=== PATIENT | female | born 1930 | race Caucasian/White ===

== ENCOUNTER 2016-12-01 18:07 | Inpatient (IN) | payer OTHER, MEDICARE ==
[~2016-12-01] VITALS: Ht 152.4 cm; Wt 72.6 kg
--- NOTE | 2016-12-01 18:42 | NUR ---
ADMISSION: The patient, BHUPENDRA ROMEO, 85 y/o, F admitted by CODY MELGAR MD, for pneumonia. Patient was given written information regarding hospital policies, unit procedures and contact persons. rn shift mgr nurse for this patient will be Fred. Patient room number is 126B.
[2016-12-01 20:00] VITALS: BP 137/72; PULSE 100; RESP 20; TEMP 97.2; O2SAT 95
--- NOTE | 2016-12-01 21:12 | NUR ---
PAGED: I PAGED DR. CAREN Donahue @ [phone] I SPOKE WITH ROBBY BALA FABIAN CALLED BACK @ 2109
[2016-12-01] MEDS ORDERED: INSULIN ASPART 100 UNITS/ML, 10 ML VIAL (NovoLOG) SUBCUT PRN (21:15)
[2016-12-01] MEDS ORDERED: ONDANSETRON HCL 4 MG/2 ML VIAL IVP PRN (21:15)
[2016-12-01] MEDS ORDERED: AZITHROMYCIN 500 MG in NS 250 ML IV ONE (21:15)
[2016-12-01] MEDS ORDERED: PHEDM120 PO (21:20)
[2016-12-01] MEDS ORDERED: INSU100V9 SUBCUT (21:20)
[2016-12-01] MEDS ORDERED: FOLI-43 PO (21:20)
[2016-12-01] MEDS ORDERED: SSNOVOLOG SUBCUT (21:20)
[2016-12-01] MEDS ORDERED: VITD2000 PO (21:20)
[2016-12-01] MEDS ORDERED: DILT180C69 PO (21:20)
[2016-12-01] MEDS ORDERED: FURO20TA4 PO (21:20)
[2016-12-01] MEDS ORDERED: SPIR50TA26 PO (21:20)
[2016-12-01] MEDS ORDERED: PANT20TA2 PO (21:20)
[2016-12-01] MEDS ORDERED: OXYB10TA4 PO (21:20)
--- NOTE | 2016-12-01 21:20 | NUR ---
DR. MELGAR. ORDERS FOR PATIENT BY DR. MELGAR.
[2016-12-01 21:25] VITALS: BP 137/72; PULSE 100; RESP 20; TEMP 97.2; O2SAT 95
--- NOTE | 2016-12-01 21:40 | NUR ---
NOTES HAS RFA 22G, IV SITE INTACT AND PATENT. SCD ON PATIENT ORDERED.
[2016-12-01] MEDS ORDERED: AZITHROMYCIN 500 MG/VIAL (ZITHROMAX) IV ONE (22:00)
[2016-12-01] MEDS ORDERED: cefTRIAXone 1 GM IVPB PREMIX 50 ML IV ONE (22:00)
[2016-12-01] MEDS: cefTRIAXone 1 GM in D5W 50 ML IV SCH (22:31)
--- NOTE | 2016-12-01 22:55 | NUR ---
BLOOD SUGAR 62 GAVE PATIENT JELLO AND APPLE JUICE.
--- NOTE | 2016-12-01 23:45 | NUR ---
BLOOD SUGAR 178 APPLE JUICE AND JELLO EFFECTIVE FOR BRINGING UP GLUCOSE LEVEL.
[2016-12-02 01:25] VITALS: BP 137/77; PULSE 108; RESP 14; TEMP 99.2; O2SAT 92
--- NOTE | 2016-12-02 02:20 | NUR ---
PATIENT RESTING: Patient resting quietly. No acute distress noted. Vital signs within normal range.
[2016-12-02] MEDS ORDERED: INSULIN ASPART 100 UNITS/ML, 10 ML VIAL (NovoLOG) SUBCUT PRN (02:45)
[2016-12-02 04:03] VITALS: BP 130/80; PULSE 101; RESP 16; TEMP 99.9; O2SAT 89
--- NOTE | 2016-12-02 04:15 | NUR ---
NOTES PATIENT DENIES SOB. NO RESPIRATORY INSUFFICIENCY NOTED @ THIS TIME. RESTING QUIETLY.
--- NOTE | 2016-12-02 06:30 | NUR ---
CLOSING NOTES PATIENT BLOOD SUGAR IS 154. NO COVERAGE GIVEN. PATIENT NPO FOR CHEST CT SCAN WITH IV CONTRAST. BED ALARM ON WITH SIDE RAILS UP X2. DAUGHTER @ BEDSIDE FILLED OUT CT SCAN QUESTIONS. CALL LIGHT WITHIN EASY ACCESS.
[2016-12-02 07:25] LABS: BASOPHILS % (AUTO) 0.5 % (0.0-2.0); EOSINOPHILS % (AUTO) 0.1 % (0.0-4.0); HEMATOCRIT 33.5 % (36-48); HEMOGLOBIN 11.5 g/dL (12.0-16.0); LYMPHOCYTES # (AUTO) 1.2 K/uL (1.0-5.5); MEAN CORPUSCULAR HEMOGLOBIN 33 pg (27-31); MEAN CORPUSCULAR HGB CONC 34 % (32-36); MEAN CORPUSCULAR VOLUME 95 fL (79.0-98.0); MONOCYTES # (AUTO) 0.7 K/uL (0.0-1.0); MONOCYTES % (AUTO) 11.6 % (1.7-9.3); NEUTROPHILS # (AUTO) 3.7 K/uL (1.8-7.7); NEUTROPHILS % (AUTO) 66.8 % (40.0-70.0); PLATELET COUNT (AUTO) 92 K/uL (130-430); RED BLOOD CELL COUNT(AUTO) 3.52 MIL/uL (4.2-6.2); RED CELL DISTRIBUTION WIDTH 14.7 % (9.0-15.0); WHITE BLOOD COUNT (AUTO) 5.6 K/uL (4.8-10.8)
[2016-12-02 07:39] LABS: ANION GAP 7 (5-15); CALCIUM 7.9 mg/dL (8.4-11.0); CHLORIDE 97 mmol/L (98-107); CREATININE 1.06 mg/dL (0.55-1.30); GLUCOSE 114 mg/dL (70-99); POTASSIUM 3.7 mmol/L (3.5-5.1); SODIUM SERUM 129 mmol/L (136-145); UREA NITROGEN, BLOOD 16 mg/dL (8-21)
[2016-12-02 08:00] VITALS: BP 126/76; PULSE 105; RESP 16; TEMP 99.1; O2SAT 98
[2016-12-02] MEDS ORDERED: IOHEXOL 100 ML IV ONE (08:28)
--- NOTE | 2016-12-02 08:55 | NUR ---
Nutrition Update Reymundo Scale 15 noted. Pt admitted for pneumonia. Diet: [facility] BMI: 25.6 kg/m2 RD to follow per nutrition care standards.
[2016-12-02] MEDS ORDERED: FUROSEMIDE 20 MG TABLET PO SCH (09:00)
[2016-12-02] MEDS ORDERED: DILTIAZEM HCL 180 MG CAP.SR.24H PO SCH (09:00)
[2016-12-02] MEDS: DILTIAZEM HCL 180 MG CAP.SR.24H PO SCH (09:20)
[2016-12-02] MEDS: ACETAMINOPHEN 500 MG TABLET PO PRN (09:20)
[2016-12-02] MEDS: OXYBUTYNIN CHLORIDE 5 MG TABLET PO SCH ×2 (09:21→21:57)
[2016-12-02] MEDS: FOLIC ACID 1 MG TABLET PO SCH ×3 (09:21→21:58)
[2016-12-02] MEDS: SPIRONOLACTONE 50 MG TABLET (ALDACTONE) PO SCH (09:21)
[2016-12-02] MEDS: CHOLECALCIFEROL (VITAMIN D3) 2,000 UNIT TABLET PO SCH (09:22)
--- NOTE | 2016-12-02 10:15 | NUR ---
Consult called: for Dr. Watson, regarding CHF, ordered by Godfrey Hicks, spoke with Gege.
--- NOTE | 2016-12-02 10:45 | NUR ---
Nephro Consult: for Dr. Schmid, regarding hyponatremia, ordered by Dr. Nash, spoke with Jeffery.
--- NOTE | 2016-12-02 10:45 | NUR ---
STARTED F/C 16FR ON PT. TOLERATED WELL; CLEAR YELLOW URINE. SPECIMEN SENT TO LAB. STRICT I&O PER DR. MELGAR.
--- NOTE | 2016-12-02 11:20 | NUR ---
Pulmo consult: for Dr. Zarco, regarding pneumonia, ordered by Godfrey Hicks, spoke with Aster.
[2016-12-02 11:45] VITALS: BP 126/76; PULSE 105
[2016-12-02 11:52] LABS: BILIRUBIN,URINE NEGATIVE (NEGATIVE); BLOOD, URINE NEGATIVE (NEGATIVE); CLARITY/URINE SL HAZY (CLEAR); COLOR,URINE YELLOW (YELLOW); GLUCOSE,URINE NEGATIVE (NEGATIVE); KETONES,URINE NEGATIVE (NEGATIVE); LEUKOCYTE ESTERASE ,URINE TRACE (NEGATIVE); NITRITE, URINE POSITIVE (NEGATIVE); PROTEIN URINE NEGATIVE (NEGATIVE)
--- NOTE | 2016-12-02 12:00 | NUR ---
[facility] of Care Received pt in bed, no s/s of distress or sob noted, pt has no c/o pain at this time, pt in stable condition. Pt alert and oriented 1, confused, daughter at bedside. IV catheter patent, no signs of infection or infiltration noted. Fall precautions in place. Bed at lowest position, call light within reach, will continue to monitor pt for any changes.
[2016-12-02 12:10] LABS: BACTERIA,URINE MODERATE /HPF (None Seen); RBC,URINE 0-3 /HPF (0-3)
[2016-12-02 12:48] VITALS: BP 117/61; PULSE 80; RESP 17; TEMP 98.4; O2SAT 94
--- NOTE | 2016-12-02 13:22 | NUR ---
Discharge Planning Patient's daughter, Ginger, would like patient to have home health care ordered upon discharge. [facility] requested the name of the agency used in the past from Dr Nash's office. Addendum: 12/02/16 at [address] Nash's office called. They use [facility] [phone]. Notified ALIS Cole.
--- NOTE | 2016-12-02 13:40 | NUR ---
MD ROUNDS Dr Schmid making rounds, aware of patients condition.
--- NOTE | 2016-12-02 14:20 | NUR ---
ROUNDS Pt in bed, no s/s of distress or sob noted, pt has no c/o pain at this time, pt in stable condition. Pt resting comfortably, will continue to monitor pt for any changes.
[2016-12-02] MEDS ORDERED: GLUCOSE 15 GM GEL (in 37.5 GM TUBE) PO PRN ×2 (14:45)
[2016-12-02] MEDS ORDERED: DEXTROSE 50%-WATER 50 ML DISP.SYRIN IVP PRN ×2 (14:45)
[2016-12-02] MEDS: IPRATROPIUM/ALBUTEROL SULFATE 3 ML AMPUL.NEB INH SCH ×3 (15:29→23:04)
[2016-12-02] MEDS ORDERED: PANTOPRAZOLE SODIUM 40 MG TAB PO ONE (15:45)
[2016-12-02 16:11] VITALS: BP 120/65; PULSE 84; RESP 18; TEMP 97.9; O2SAT 95
[2016-12-02] MEDS: INSULIN REGULAR, HUMAN 100 UNITS/ML, 10 ML VIAL (novoLIN R) SUBCUT PRN ×2 (16:59→22:30)
[2016-12-02] MEDS ORDERED: FUROSEMIDE 20 MG/2 ML VIAL IVP ONE (18:15)
--- NOTE | 2016-12-02 18:40 | NUR ---
Closing Note Pt in bed, no s/s of distress or sob noted, pt has no c/o pain at this time, pt in stable condition. Pt alert and oriented 2, confused, daughter at bedside. IV catheter patent, no signs of infection or infiltration noted. Fall precautions in place. Bed at lowest position, call light within reach, will endrose care of pt to incoming nurse.
--- NOTE | 2016-12-02 20:00 | NUR ---
Initial note Received lying in bed awake, alert & oriented x to name & place. Family at bedside. Denies pain or discomfort. Denies shortness of breath. Westfall catheter intact draining yellow urine. Instructed patient with family to remain in bed to prevent any fall or injury. Verbalized understanding. Instructed on use of call light & to notify staff if in need of assistance. Needs further instruction. Will continue to monitor.
--- NOTE | 2016-12-02 21:57 | NUR ---
Medications Due po medications given as ordered. tolerated well.
[2016-12-02] MEDS: guaiFENesin ER 600 MG TAB PO SCH (21:58)
[2016-12-02] MEDS: cefTRIAXone 1 GM in D5W 50 ML IV SCH (22:00)
--- NOTE | 2016-12-02 22:30 | NUR ---
Blood sugar Fingerstick checked = 249 mg/dL. No s/s of hypo/hyperglycemia. 4 unites regular insurin for coverage and schedule Levemir 20 units scheduled dose given as ordered.
[2016-12-02] MEDS: AZITHROMYCIN 250 MG in NS 250 ML IV SCH (22:48)
[2016-12-03 00:07] VITALS: BP 121/59; PULSE 108; RESP 20; TEMP 98.4; O2SAT 98
[2016-12-03] MEDS: IPRATROPIUM/ALBUTEROL SULFATE 3 ML AMPUL.NEB INH SCH ×5 (03:59→22:20)
[2016-12-03 04:06] VITALS: BP 120/54; PULSE 98; RESP 18; TEMP 98.2; O2SAT 96
[2016-12-03 06:54] LABS: BASOPHILS % (AUTO) 0.3 % (0.0-2.0); EOSINOPHILS % (AUTO) 0.1 % (0.0-4.0); HEMATOCRIT 34.4 % (36-48); HEMOGLOBIN 11.8 g/dL (12.0-16.0); LYMPHOCYTES # (AUTO) 0.7 K/uL (1.0-5.5); LYMPHOCYTES % (AUTO) 15.5 % (20.5-51.5); MEAN CORPUSCULAR HEMOGLOBIN 32 pg (27-31); MEAN CORPUSCULAR HGB CONC 34 % (32-36); MEAN CORPUSCULAR VOLUME 95 fL (79.0-98.0); MONOCYTES # (AUTO) 0.4 K/uL (0.0-1.0); MONOCYTES % (AUTO) 8.8 % (1.7-9.3); NEUTROPHILS # (AUTO) 3.3 K/uL (1.8-7.7); NEUTROPHILS % (AUTO) 75.3 % (40.0-70.0); PLATELET COUNT (AUTO) 86 K/uL (130-430); RED BLOOD CELL COUNT(AUTO) 3.64 MIL/uL (4.2-6.2); RED CELL DISTRIBUTION WIDTH 14.3 % (9.0-15.0); WHITE BLOOD COUNT (AUTO) 4.4 K/uL (4.8-10.8)
--- NOTE | 2016-12-03 07:00 | NUR ---
Closing note Resting quietly, alert & oriented to name, daughter at bedside. No c/o pain or discomfort. Reoriented to place & time. Repositioned frequently with pillow support. All needs attended to. Will give report to oncoming shift RN.
[2016-12-03 07:41] LABS: ANION GAP 6 (5-15); CALCIUM 7.9 mg/dL (8.4-11.0); CHLORIDE 98 mmol/L (98-107); CREATININE 0.95 mg/dL (0.55-1.30); GLUCOSE 128 mg/dL (70-99); POTASSIUM 3.4 mmol/L (3.5-5.1); SODIUM SERUM 131 mmol/L (136-145); UREA NITROGEN, BLOOD 16 mg/dL (8-21)
--- NOTE | 2016-12-03 07:55 | NUR ---
INITIAL NOTES RECEIVED PATIENT ON BED AWAKE WITH DAUGHTER AT BEDSIDE.BREATHING EVEN AND UNLABORED.NO ACUTE DISTRESS.IVF INFUSING WELL;NO SIGNS AND SYMPTOMS OF INFILTRATION.SAFETY AND FALL PRECAUTIONS IN PLACE.CALL LIGHT WITHIN REACH
[2016-12-03 08:00] VITALS: BP 119/65; PULSE 117; RESP 22; TEMP 98.8; O2SAT 97
--- NOTE | 2016-12-03 08:30 | NUR ---
NOTES DR. MELGAR CAME AND EXAMINED THE PATIENT;WITH ORDERS MADE AND CARRIED OUT
[2016-12-03] MEDS ORDERED: POTASSIUM CHLORIDE 20 MEQ/PKT PACKET PO ONE (09:45)
[2016-12-03] MEDS: OXYBUTYNIN CHLORIDE 5 MG TABLET PO SCH ×2 (09:50→21:13)
[2016-12-03] MEDS: guaiFENesin ER 600 MG TAB PO SCH ×2 (09:50→21:13)
[2016-12-03] MEDS: CHOLECALCIFEROL (VITAMIN D3) 2,000 UNIT TABLET PO SCH (09:50)
[2016-12-03] MEDS: FOLIC ACID 1 MG TABLET PO SCH ×3 (09:50→21:13)
[2016-12-03] MEDS: PANTOPRAZOLE SODIUM 40 MG TAB PO SCH (09:50)
[2016-12-03] MEDS: FUROSEMIDE 40 MG/4 ML VIAL IVP SCH (09:50)
[2016-12-03] MEDS: DILTIAZEM HCL 180 MG CAP.SR.24H PO SCH (09:51)
[2016-12-03] MEDS: LISINOPRIL 5 MG TABLET PO SCH (09:52)
[2016-12-03] MEDS: SPIRONOLACTONE 50 MG TABLET (ALDACTONE) PO SCH (09:52)
[2016-12-03] MEDS ORDERED: POTASSIUM CHLORIDE 20 MEQ TAB.PRT.SR PO ONE (10:45)
--- NOTE | 2016-12-03 10:45 | NUR ---
NOTES CHECKED PATIENT;NEEDS ATTENDED TO
[2016-12-03] MEDS ORDERED: METOPROLOL TARTRATE 25 MG TABLET PO ONE (11:45)
[2016-12-03 12:00] VITALS: BP 117/54; PULSE 108; RESP 18; TEMP 97.1; O2SAT 95
[2016-12-03] MEDS: INSULIN REGULAR, HUMAN 100 UNITS/ML, 10 ML VIAL (novoLIN R) SUBCUT PRN ×3 (12:02→21:31)
--- NOTE | 2016-12-03 12:30 | NUR ---
NOTES PATIENT FED BY DAUGHTER;TOLERATED FOOD WELL
--- NOTE | 2016-12-03 15:00 | NUR ---
NOTES ASSISTED PATIENT WITH THE PT FROM THE RESTROOM TO THE BED;WITH UNSTEADY GAIT.INSTRUCTED FAMILY NOT TO TRY TO ASSIST THE PATIENT WITHOUT CALLING THE NURSE DUE TO RISK OF FALLING;AGREED AND VERBALIZED UNDERSTANDING
--- NOTE | 2016-12-03 15:03 | NUR ---
PHYSICAL THERAPY CO-SIGN The Physical Therapy Progress Notes documented by Gear Roller have been reviewed. Pt IS SHOWING PROGRESS W/POC, CONT PER TX PLAN Reviewed/Co-Signed by: Julia Goel PT Documentation Done by: MARTHA SHANKAR WELDING SETTER Addendum: 12/03/16 at 1504 by Julia Goel PT Amended: Links added.
[2016-12-03 18:01] VITALS: BP 115/57; PULSE 105; RESP 18; TEMP 97; O2SAT 95
--- NOTE | 2016-12-03 18:15 | NUR ---
CLOSING NOTES PATIENT ON BED AWAKE WITH DAUGHTER AT BEDSIDE.BREATHING EVEN AND UNLABORED WITH O2 AT 2L/M VIA NASAL CANNULA.NO ACUTE DISTRESS.IV SALINE LOCK INTACT AND PATENT.SAFETY AND FALL PRECAUTIONS IN PLACE.CALL LIGHT WITHIN REACH.WILL ENDORSE TO NEXT SHIFT ACCORDINGLY
[2016-12-03 19:45] VITALS: BP 107/52; PULSE 95; RESP 17; TEMP 97.9; O2SAT 90
--- NOTE | 2016-12-03 19:45 | NUR ---
INITIAL NOTES RECEIVED PATIENT ON BED AWAKE WITH DAUGHTER AT BEDSIDE.BREATHING EVEN AND UNLABORED.NO ACUTE DISTRESS. DENIES PAIN AT THIS TIME. IV ACCESS NOTED TO RFA, NO SIGNS AND SYMPTOMS OF INFILTRATION NOTED.SAFETY AND FALL PRECAUTIONS IN PLACE.CALL LIGHT WITHIN REACH.
[2016-12-03] MEDS: METOPROLOL TARTRATE 25 MG TABLET PO SCH (21:16)
[2016-12-03] MEDS: AZITHROMYCIN 250 MG in NS 250 ML IV SCH (21:17)
--- NOTE | 2016-12-03 22:03 | NUR ---
ROUNDS PT. RESTING IN BED WITH EYES CLOSED. CHEST RISE AND FALL NOTED. DAUGHTER AT BEDSIDE. IV ANTIBIOTIC INFUSING WELL ORDERED. NO ADVERSE REACTIONS NOTED. NO FACIAL GRIMACING FOR PAIN. WILL CONTINUE TO MONITOR FOR CHANGES. SAFETY AND FALL PRECAUTIONS IN PLACE, CALL LIGHT IN REACH.
[2016-12-03] MEDS: cefTRIAXone 1 GM in D5W 50 ML IV SCH (23:26)
[2016-12-03] MEDS: LACTULOSE 20 GM/30 ML UDC PO SCH (23:28)
--- NOTE | 2016-12-04 00:02 | NUR ---
ROUNDS PT. RESTING IN BED WITH EYES CLOSED. CHEST RISE AND FALL NOTED. NO S/S OF SOB OR DISTRESS. NO FACIAL GRIMACING FOR PAIN. DAUGHTER AT BEDSIDE. WILL CONTINUE TO MONITOR FOR CHANGES. SAFETY AND FALL PRECAUTIONS IN PLACE, CALL LIGHT IN REACH.
[2016-12-04 01:17] VITALS: BP 101/65; PULSE 70; RESP 16; TEMP 97.1; O2SAT 100
[2016-12-04] MEDS: IPRATROPIUM/ALBUTEROL SULFATE 3 ML AMPUL.NEB INH SCH ×6 (03:05→20:14)
[2016-12-04 04:12] VITALS: BP 120/70; PULSE 95; RESP 18; TEMP 97.9; O2SAT 93
--- NOTE | 2016-12-04 07:00 | NUR ---
closing note pt. resting in bed at this time. alert, with daughter at the bedside. hypoglycemic protocol was initiated this morning for accu check of 31 at 0628, glucose gel given, along with oj. rechecked at 0643, glucose level was 32, gave d 50%, rechecked at 0658, glucose went up to 200. pt. in stable condition at this time with no s/s of hypoglycemia present. day nurse Treva and Myron made aware, state they will inform MD. all necessary needs met, safety and fall precautions maintained. call light in reach.
[2016-12-04 07:26] LABS: ANION GAP 5 (5-15); CALCIUM 8.4 mg/dL (8.4-11.0); CHLORIDE 97 mmol/L (98-107); CREATININE 1.06 mg/dL (0.55-1.30); POTASSIUM 3.9 mmol/L (3.5-5.1); SODIUM SERUM 130 mmol/L (136-145); UREA NITROGEN, BLOOD 17 mg/dL (8-21)
[2016-12-04 07:53] LABS: GLUCOSE 32 mg/dL (70-99)
[2016-12-04 08:00] VITALS: BP 116/70; PULSE 102; RESP 18; TEMP 97.2; O2SAT 97
[2016-12-04] MEDS: LISINOPRIL 5 MG TABLET PO SCH (09:32)
[2016-12-04] MEDS: guaiFENesin ER 600 MG TAB PO SCH ×2 (09:33→21:44)
[2016-12-04] MEDS: PANTOPRAZOLE SODIUM 40 MG TAB PO SCH (09:33)
[2016-12-04] MEDS: SPIRONOLACTONE 50 MG TABLET (ALDACTONE) PO SCH (09:34)
[2016-12-04] MEDS: DILTIAZEM HCL 180 MG CAP.SR.24H PO SCH (09:35)
[2016-12-04] MEDS: METOPROLOL TARTRATE 25 MG TABLET PO SCH ×2 (09:35→21:45)
[2016-12-04] MEDS: OXYBUTYNIN CHLORIDE 5 MG TABLET PO SCH ×2 (09:37→21:45)
[2016-12-04] MEDS: FOLIC ACID 1 MG TABLET PO SCH ×3 (09:37→21:45)
[2016-12-04] MEDS: FUROSEMIDE 40 MG/4 ML VIAL IVP SCH (09:39)
[2016-12-04] MEDS: CHOLECALCIFEROL (VITAMIN D3) 2,000 UNIT TABLET PO SCH (09:40)
[2016-12-04] MEDS: LACTULOSE 20 GM/30 ML UDC PO SCH ×2 (09:47→21:00)
--- NOTE | 2016-12-04 10:00 | NUR ---
Rounds patient is sitting at the bed side. family members by the bed site. patient is talking and denies pain or discomfort. education for the family members about the plan of care was done, family verbalized understanding
--- NOTE | 2016-12-04 11:30 | NUR ---
RN Rounds patient lying on bed alter oriented denies pain and discomfort. patient blood sugar was measured< patient was covered for her blood sugar level. family members by bed side.
[2016-12-04 12:00] VITALS: BP 116/62; PULSE 86; RESP 18; TEMP 97.8; O2SAT 98
[2016-12-04] MEDS: INSULIN REGULAR, HUMAN 100 UNITS/ML, 10 ML VIAL (novoLIN R) SUBCUT PRN (12:27)
--- NOTE | 2016-12-04 13:53 | NUR ---
PHYSICAL THERAPY CO-SIGN The Physical Therapy Progress Notes documented by Microbiology Laboratory Manager have been reviewed. Reviewed/Co-Signed by: Kavya Rey Documentation Done by:MARTHA SHANKAR CURING MACHINE OPERATOR POC REVIEWED W/ CURING MACHINE OPERATOR; PROGRESS RADHA; EMPHASIZE ON ENERGY CONS TECH; 12/03/16 XR CHEST:PERSISTENT DIFFUSE MULTIFOCAL INFILTRATES, SMALL (L)EFFUSION, ASVC, CARDIOMEGALY PER CHART. Addendum: 12/04/16 at 1354 by Kavya Rey PT Amended: Links added.
--- NOTE | 2016-12-04 14:00 | NUR ---
RN Rounds patient needed to have a bowel movement, BSC was brought into the room in anticipation. patient was cleaned up and bed linens were changed
[2016-12-04] MEDS: VANCOMYCIN HCL 600 MG in NS 250 ML IV SCH (14:55)
[2016-12-04] MEDS: ACETYLCYSTEINE 20% 4 ML VIAL (RT) INH SCH ×2 (15:09→20:14)
--- NOTE | 2016-12-04 17:00 | NUR ---
RN Rounds patient lying in bed family members by bed side, patient's blood sugar was measured . patient was not covered with insulin since her level was 114 . patient is breathing at ease> no coughing or shortness of breath. will follow up
[2016-12-04 17:34] VITALS: BP 114/66; PULSE 83; RESP 18; TEMP 97.5; O2SAT 98
--- NOTE | 2016-12-04 19:06 | NUR ---
CLOSING NOTE Pt assisted to bedside commode by exhibits manager and had a moderate sized BM. Pt cleaned up and assisted back into bed. Pt with no s/s resp distress, no c/o pain or discomfort. Side rails up x3, room across from nursing station and bed alarm on for safety. Call light within reach.
--- NOTE | 2016-12-04 19:37 | NUR ---
RN ROUNDS Patient in bed at this time resting, respirations even and unlabored. Family at the bedside. Patient denies any pain or discomfort at this time. IV site patent with no signs or symptoms of infiltration noted at this time. Call light in hand, Fall and safety precautions in place. Will continue to monitor.
--- NOTE | 2016-12-04 19:46 | NUR ---
Rounds patient was assessed alert oriented x4. denies pain and discomfort. patient vital were measured. patient medication will be passed on at 900 am will follow up Addendum: 12/04/16 at 1958 by Ayanna Danielle RN this was the opening note at 800
[2016-12-04 20:00] VITALS: BP 121/74; PULSE 61; RESP 20; TEMP 97.8; O2SAT 96
--- NOTE | 2016-12-04 20:15 | NUR ---
Skin Tear Noticed skin tear 2cmx0.5cm on left elbow when assisting patient back to bed from bedside commode. Patient denies any pain or discomfort to site. Family at bedside and states that her skin is very fragile, and tears easily. Cleansed with NS, pat dry. Applied hydrogel, and per daughters request, applied gauzed and paper tape. Patient tolerated well.
[2016-12-04] MEDS: AZITHROMYCIN 250 MG in NS 250 ML IV SCH (21:44)
[2016-12-04] MEDS: cefTRIAXone 1 GM in D5W 50 ML IV SCH (21:46)
--- NOTE | 2016-12-04 22:03 | NUR ---
RN ROUNDS Patient in bed at this time resting, respirations even and unlabored. No acute distress noted at this time. Family at bedside. Call light in hand. Fall and safety precautions in place. Will continue to monitor.
[2016-12-05] VITALS (7 sets, daily range): BP systolic 98–132; BP diastolic 48–68; PULSE 76–93; RESP 18; TEMP 96.5–98; O2SAT 96–99
[2016-12-05] MEDS: IPRATROPIUM/ALBUTEROL SULFATE 3 ML AMPUL.NEB INH SCH ×7 (00:18→23:00)
[2016-12-05] MEDS: ACETYLCYSTEINE 20% 4 ML VIAL (RT) INH SCH ×6 (00:18→23:00)
--- NOTE | 2016-12-05 00:24 | NUR ---
RN ROUNDS Patient in bed at this time resting, respirations even and unlabored. No acute distress noted at this time. Call light in hand. Fall and safety precautions in place. Vital signs stable. Will continue to monitor.
--- NOTE | 2016-12-05 02:10 | NUR ---
RN ROUNDS Patient in bed at this time resting, respirations even and unlabored. No acute distress noted at this time. Daughter Yissel at bedside. Call light in hand. Fall and safety precautions in place. Will continue to monitor.
--- NOTE | 2016-12-05 04:48 | NUR ---
RN ROUNDS Patient in bed at this time resting, respirations even and unlabored. No acute distress noted at this time. Vital signs stable. Call light in hand. Fall and safety precautions in place. Will continue to monitor.
[2016-12-05] MEDS: INSULIN REGULAR, HUMAN 100 UNITS/ML, 10 ML VIAL (novoLIN R) SUBCUT PRN ×3 (06:18→21:37)
[2016-12-05 06:24] LABS: BASOPHILS % (AUTO) 0.5 % (0.0-2.0); EOSINOPHILS # (AUTO) 0.1 K/uL (0.0-0.4); EOSINOPHILS % (AUTO) 0.8 % (0.0-4.0); HEMATOCRIT 36.4 % (36-48); HEMOGLOBIN 12.1 g/dL (12.0-16.0); LYMPHOCYTES # (AUTO) 1.7 K/uL (1.0-5.5); LYMPHOCYTES % (AUTO) 25.9 % (20.5-51.5); MEAN CORPUSCULAR HEMOGLOBIN 32 pg (27-31); MEAN CORPUSCULAR HGB CONC 33 % (32-36); MEAN CORPUSCULAR VOLUME 96 fL (79.0-98.0); MONOCYTES # (AUTO) 0.6 K/uL (0.0-1.0); MONOCYTES % (AUTO) 9.5 % (1.7-9.3); NEUTROPHILS # (AUTO) 4.1 K/uL (1.8-7.7); NEUTROPHILS % (AUTO) 63.3 % (40.0-70.0); PLATELET COUNT (AUTO) 111 K/uL (130-430); RED CELL DISTRIBUTION WIDTH 14.4 % (9.0-15.0); WHITE BLOOD COUNT (AUTO) 6.5 K/uL (4.8-10.8)
[2016-12-05 06:40] LABS: ANION GAP 9 (5-15); CALCIUM 8.6 mg/dL (8.4-11.0); CHLORIDE 98 mmol/L (98-107); GLUCOSE 207 mg/dL (70-99); SODIUM SERUM 133 mmol/L (136-145); UREA NITROGEN, BLOOD 17 mg/dL (8-21)
--- NOTE | 2016-12-05 06:41 | NUR ---
CLOSING NOTE Patient in bed at this time resting, with daughter at the bedside. Respirations even and unlabored. No acute distress noted at this time. Patient in no apparent pain or discomfort at this time, no facial grimacing noted. All due meds given, all needs met. Call light in hand. Fall and safety precautions in place. Will endorse to day shift nurse.
--- NOTE | 2016-12-05 08:00 | NUR ---
Initial Notes Patient A/O x 3. Respirations even and unlabored. Denies difficulty breathing. IV access patent. Fall and safety precautions in place. Bed in lowest and locked position.
[2016-12-05] MEDS: LACTULOSE 20 GM/30 ML UDC PO SCH ×2 (09:00→21:16)
[2016-12-05] MEDS ORDERED: TOBRAMYCIN SULFATE OP SCH (09:00)
[2016-12-05] MEDS: guaiFENesin ER 600 MG TAB PO SCH ×2 (09:58→21:19)
[2016-12-05] MEDS: FOLIC ACID 1 MG TABLET PO SCH ×3 (09:58→21:18)
[2016-12-05] MEDS: PANTOPRAZOLE SODIUM 40 MG TAB PO SCH (09:59)
[2016-12-05] MEDS: CHOLECALCIFEROL (VITAMIN D3) 2,000 UNIT TABLET PO SCH (09:59)
[2016-12-05] MEDS: METOPROLOL TARTRATE 25 MG TABLET PO SCH ×2 (10:00→21:18)
[2016-12-05] MEDS: LISINOPRIL 5 MG TABLET PO SCH (10:00)
[2016-12-05] MEDS: SPIRONOLACTONE 50 MG TABLET (ALDACTONE) PO SCH (10:01)
[2016-12-05] MEDS: DILTIAZEM HCL 180 MG CAP.SR.24H PO SCH (10:01)
[2016-12-05] MEDS: TOBRAMYCIN SULFATE 0.3% EYE DROPS 5 ML OP SCH ×4 (10:02→21:19)
[2016-12-05] MEDS: OXYBUTYNIN CHLORIDE 5 MG TABLET PO SCH ×2 (10:03→21:38)
--- NOTE | 2016-12-05 11:17 | NUR ---
Notes Patient sitting upright in chair. Ambulated earlier with physical therapy. No acute distress noted.
[2016-12-05] MEDS: VANCOMYCIN HCL 600 MG in NS 250 ML IV SCH (13:08)
--- NOTE | 2016-12-05 13:56 | NUR ---
PHYSICAL THERAPY CO-SIGN The Physical Therapy Progress Notes documented by Top Closer have been reviewed. Reviewed/Co-Signed by: Ramandeep Miguel, PT Documentation Done by: Rafa Schuster PTA I concur with the documentation of this EDGING MACHINE OPERATOR. Plan: continue PT as per plan of care. Addendum: 12/05/16 at 1357 by Ramandeep Miguel PT Amended: Links added.
--- NOTE | 2016-12-05 18:50 | NUR ---
Closing Note Patient needs met throughout shift. Remained free of respiratory distress throughout shift. Able to ambulate with assistance. Family at bedside throughout day. Will continue to monitor until patient care is endorsed to oncoming shift nurse.
--- NOTE | 2016-12-05 20:36 | NUR ---
Patient awake alert assist out of bed to BSC , family at the bedside fall measures implemented , back to bed comfort measures helpful , call given to patient / .
[2016-12-05] MEDS: AZITHROMYCIN 250 MG in NS 250 ML IV SCH (21:17)
[2016-12-05] MEDS: cefTRIAXone 1 GM in D5W 50 ML IV SCH (21:20)
--- NOTE | 2016-12-05 23:15 | NUR ---
Reposition and Turning off loading with pillows comfort measures implemented activity tolerated / .
--- NOTE | 2016-12-06 00:15 | NUR ---
Patient awake assist out of bed to BSC , family member at the bedside fall measures implemented .
[2016-12-06 00:41] VITALS: BP 104/58; PULSE 86; RESP 17; TEMP 97.2; O2SAT 96
--- NOTE | 2016-12-06 02:25 | NUR ---
ZITHROMAX 250 MG IVP administer as ordered no allergic reaction skin dry warm no complaints made .
[2016-12-06] MEDS: IPRATROPIUM/ALBUTEROL SULFATE 3 ML AMPUL.NEB INH SCH ×6 (03:53→23:06)
[2016-12-06] MEDS: ACETYLCYSTEINE 20% 4 ML VIAL (RT) INH SCH ×6 (03:54→23:06)
[2016-12-06 04:30] VITALS: BP 114/58; PULSE 88; RESP 18; TEMP 97; O2SAT 98
--- NOTE | 2016-12-06 05:49 | NUR ---
Rocephin 1 GM ivpb administer as ordered no allergic reaction , patient awake on and off / .
--- NOTE | 2016-12-06 05:50 | NUR ---
Hourly Rounding family at the bedside , call cook with patient bed to low position .
[2016-12-06] MEDS: INSULIN REGULAR, HUMAN 100 UNITS/ML, 10 ML VIAL (novoLIN R) SUBCUT PRN ×4 (06:37→20:50)
--- NOTE | 2016-12-06 08:00 | NUR ---
OPENING NOTE PT SITTING UP IN BED, TALKING WITH FAMILY (JOE) WHO IS AT BEDSIDE. PT IS STABLE, A&O X 4, AND IS NOT CURRENTLY IN PAIN. LUNG SOUNDS ARE SLIGHTLY DIMINISHED IN LOWER LOBES, CRACKLES PRESENT. IV FLUSHES, DRESSING INTACT.
[2016-12-06 08:31] VITALS: BP 111/62; PULSE 93; RESP 17; TEMP 97.2; O2SAT 98
[2016-12-06] MEDS: LACTULOSE 20 GM/30 ML UDC PO SCH ×2 (08:34→20:36)
[2016-12-06] MEDS: FUROSEMIDE 40 MG/4 ML VIAL IVP SCH (08:35)
[2016-12-06] MEDS: CHOLECALCIFEROL (VITAMIN D3) 2,000 UNIT TABLET PO SCH (08:35)
[2016-12-06] MEDS: PANTOPRAZOLE SODIUM 40 MG TAB PO SCH (08:36)
[2016-12-06] MEDS: DILTIAZEM HCL 180 MG CAP.SR.24H PO SCH (08:37)
[2016-12-06] MEDS: FOLIC ACID 1 MG TABLET PO SCH ×3 (08:37→20:37)
[2016-12-06] MEDS: LISINOPRIL 5 MG TABLET PO SCH (08:37)
[2016-12-06] MEDS: SPIRONOLACTONE 50 MG TABLET (ALDACTONE) PO SCH (08:38)
[2016-12-06] MEDS: guaiFENesin ER 600 MG TAB PO SCH ×2 (08:38→20:37)
[2016-12-06] MEDS: METOPROLOL TARTRATE 25 MG TABLET PO SCH ×2 (08:39→20:37)
[2016-12-06] MEDS: TOBRAMYCIN SULFATE 0.3% EYE DROPS 5 ML OP SCH ×4 (08:40→20:36)
[2016-12-06] MEDS: OXYBUTYNIN CHLORIDE 5 MG TABLET PO SCH ×2 (08:42→20:37)
--- NOTE | 2016-12-06 10:00 | NUR ---
ROUNDS PT FAMILY MEMBER STEPPED AWAY BUT SAID SHE WILL RETURN SHORTLY. PT RESTING IN BED AND APPEARS COMFORTABLE. BED IN LOWEST POSITION AND CALL LIGHT WITHIN REACH
--- NOTE | 2016-12-06 11:45 | NUR ---
RT at bedside to assist patient back to bed. Pt request to sit up a while longer. Pt in recliner with family at bedside. Addendum: 12/06/16 at 1146 by Yaneli Martinez RN PT - Physical therapy
[2016-12-06 12:00] VITALS: BP 104/53; PULSE 87; RESP 18; TEMP 96.7; O2SAT 99
--- NOTE | 2016-12-06 12:00 | NUR ---
ROUNDS PT SITTING UP IN A CHAIR, TALKING WITH HER FAMILY MEMBERS WHO ARE AT BEDSIDE
[2016-12-06] MEDS: VANCOMYCIN HCL 600 MG in NS 250 ML IV SCH (13:24)
--- NOTE | 2016-12-06 14:00 | NUR ---
rounds pt sitting up in a chair, talking with her family
[2016-12-06 15:38] VITALS: Ht 152.4 cm; Wt 72.6 kg
--- NOTE | 2016-12-06 16:00 | NUR ---
ROUNDS PT IS STILL SITTING UP IN A LOUNGE CHAIR, FAMILY PRESENT AT BEDSIDE.
[2016-12-06 16:12] VITALS: BP 119/64; PULSE 73; RESP 18; TEMP 97.3; O2SAT 98
--- NOTE | 2016-12-06 18:00 | NUR ---
ROUNDS PT IS BACK IN BED. POSITIONED FOR COMFORT AND SET BED IN LOWEST POSITION. CALL LIGHT WITHIN REACH
--- NOTE | 2016-12-06 18:00 | NUR ---
Dr Carolee shah
--- NOTE | 2016-12-06 18:29 | NUR ---
Dr Darnell manpower development specialist rounds
[2016-12-06 19:00] LABS: ANION GAP 8 (5-15); CALCIUM 9.2 mg/dL (8.4-11.0); CHLORIDE 96 mmol/L (98-107); CREATININE 1.24 mg/dL (0.55-1.30); GLUCOSE 224 mg/dL (70-99); POTASSIUM 4.7 mmol/L (3.5-5.1); SODIUM SERUM 129 mmol/L (136-145); UREA NITROGEN, BLOOD 17 mg/dL (8-21)
--- NOTE | 2016-12-06 19:00 | NUR ---
CLOSING NOTE PT IN BED, FAMILY STILL AT BEDSIDE. VS STABLE AND PT STATED SHE IS COMFORTABLE. REPORT ENDORSED AT BEDSIDE
[2016-12-06 19:30] VITALS: BP 128/69; PULSE 80; RESP 18; TEMP 97; O2SAT 100
--- NOTE | 2016-12-06 19:30 | NUR ---
Initial Notes Pt is A/Ox2, with some confusion noted. Family is at bedside. Plan of care discussed with family and pt, all verbalized understanding. VSS. IV intact, saline lock. Pt is on room air with O2 saturation at 100%. Pt noted to wear diapers that were brought from home. Family educated regarding risks from skin breakdown while wearing diaper. Pt noted to have some redness to ofe area and buttocks, Z guard applied to reddened areas. Pt is sitting on recliner. No acute distress or sob noted. Safety precautions in place. Patient and family educated regarding call light, and correct back demonstration noted. All needs met at this time. Call light in reach. Will continue to monitor.
[2016-12-06] MEDS: cefTRIAXone 1 GM in D5W 50 ML IV SCH (20:27)
[2016-12-06] MEDS: AZITHROMYCIN 250 MG in NS 250 ML IV SCH (21:11)
[2016-12-06] MEDS: PROMETHAZINE-DM 6.25 MG-15 MG/5 ML UDC PO PRN (21:14)
--- NOTE | 2016-12-06 22:26 | NUR ---
Rounds Pt is resting comfortably in bed at this time with no acute distress or sob noted. Family remains with pt at bedside. Pt re positioned with pillows for comfort. All needs met at this time. Call light within reach. Will continue to monitor.
--- NOTE | 2016-12-06 23:09 | NUR ---
Rounds Assisted pt out of bed to use bedside commode safely. Pt's diaper from home changed per familys request. Assisted pt back into bed safely. All needs met at this time. Call light in reach. Will continue to monitor.
[2016-12-07 00:49] VITALS: BP 112/60; PULSE 72; RESP 18; TEMP 96.8; O2SAT 99
[2016-12-07] MEDS: PROMETHAZINE-DM 6.25 MG-15 MG/5 ML UDC PO PRN (03:04)
--- NOTE | 2016-12-07 03:07 | NUR ---
Cough Medicine Pt c/o cough. Pt medicated with cough medicine as ordered. All needs met at this time. Call light in reach. Will continue to monitor.
[2016-12-07] MEDS: IPRATROPIUM/ALBUTEROL SULFATE 3 ML AMPUL.NEB INH SCH ×5 (03:41→22:53)
[2016-12-07] MEDS: ACETYLCYSTEINE 20% 4 ML VIAL (RT) INH SCH ×4 (03:41→22:53)
[2016-12-07 04:40] VITALS: BP 106/57; PULSE 77; RESP 18; TEMP 97.2; O2SAT 94
[2016-12-07] MEDS: INSULIN REGULAR, HUMAN 100 UNITS/ML, 10 ML VIAL (novoLIN R) SUBCUT PRN ×4 (06:23→21:33)
--- NOTE | 2016-12-07 06:33 | NUR ---
Closing Notes Pt had large brown stool on BSC. Pt given bed bath and new gown and linen. Pt re positioned in bed for comfort. All needs met throughout shift. VSS. IV intact. All needs met throughout shift. Will endorse care to AM nurse.
[2016-12-07 07:38] VITALS: BP 124/72; PULSE 81; RESP 17; TEMP 97.4; O2SAT 99
--- NOTE | 2016-12-07 07:44 | NUR ---
OPENING NOTE PT SITTING UP IN BED, FAMILY (NATALIE, HER DAUGHTER) AT BEDSIDE. IV WAS CONNECTED BUT NOT RUNNING, BUT IV FLUSHES AND I ESTABLISHED NS AT 5 A TKO. LUNGS ARE CLEAR IN ALL LOBES, NO CRACKLES PRESENT. VS STABLE AND PT IS NOT IN PAIN
--- NOTE | 2016-12-07 08:00 | NUR ---
SKIN EDUCATED FAMILY ON WHY WE DON'T USE DIAPERS AT THIS FACILITY, BUT FAMILY WELL PATIENT INSISTED SHE CONTINUE TO WEAR THEM. FAMILY BRINGS IN THEIR OWN DEPENDS
[2016-12-07] MEDS: LACTULOSE 20 GM/30 ML UDC PO SCH (09:00)
--- NOTE | 2016-12-07 09:06 | NUR ---
HOLDING LACTULOSE PT HAS HAD 4 EPISODES OF DIARRHEA SINCE 0700, SO I AM HOLDING THE 0900 LACTULOSE.
[2016-12-07] MEDS: TOBRAMYCIN SULFATE 0.3% EYE DROPS 5 ML OP SCH ×4 (09:32→21:23)
[2016-12-07] MEDS: PANTOPRAZOLE SODIUM 40 MG TAB PO SCH (09:33)
[2016-12-07] MEDS: CHOLECALCIFEROL (VITAMIN D3) 2,000 UNIT TABLET PO SCH (09:33)
[2016-12-07] MEDS: FUROSEMIDE 40 MG/4 ML VIAL IVP SCH (09:33)
[2016-12-07] MEDS: LISINOPRIL 5 MG TABLET PO SCH (09:34)
[2016-12-07] MEDS: FOLIC ACID 1 MG TABLET PO SCH ×3 (09:34→21:21)
[2016-12-07] MEDS: DILTIAZEM HCL 180 MG CAP.SR.24H PO SCH (09:35)
[2016-12-07] MEDS: OXYBUTYNIN CHLORIDE 5 MG TABLET PO SCH ×2 (09:35→21:21)
[2016-12-07] MEDS: METOPROLOL TARTRATE 25 MG TABLET PO SCH ×2 (09:35→21:22)
[2016-12-07] MEDS: guaiFENesin ER 600 MG TAB PO SCH ×2 (09:36→21:22)
[2016-12-07] MEDS: SPIRONOLACTONE 50 MG TABLET (ALDACTONE) PO SCH (09:36)
--- NOTE | 2016-12-07 10:06 | NUR ---
ROUNDS PT RESTING IN BED, DAUGHTER AND SON AT BEDSIDE. BED IN LOWEST POSITION AND CALL LIGHT WITHIN REACH
[2016-12-07 12:00] VITALS: BP 122/72; PULSE 77; RESP 18; TEMP 96.6; O2SAT 97
--- NOTE | 2016-12-07 12:00 | NUR ---
ROUNDS PT RESTING IN BED, TALKING TO SEVERAL FAMILY MEMBERS WHO ARE AT BEDSIDE. SHE ONLY ATE 25% OF HER LUNCH AND CLAIMS SHE IS NOT HUNGRY. VS STABLE AND SHE IS NOT COMPLAINING OF PAIN. WILL CONTINUE TO MONITOR
[2016-12-07] MEDS: VANCOMYCIN HCL 600 MG in NS 250 ML IV SCH (12:24)
--- NOTE | 2016-12-07 14:00 | NUR ---
ROUNDS FAMILY STILL AT BEDSIDE, PT IS COMFORTABLE BUT SHE IS BEGINNING TO COUGH A LITTLE MORE THAN SHE HAS BEEN TODAY. i WILL CONTINUE TO MONITOR.
[2016-12-07] MEDS: ACETAMINOPHEN 500 MG TABLET PO PRN (15:21)
--- NOTE | 2016-12-07 15:30 | NUR ---
DR MELGAR AT BEDSIDE DISCUSSED TRANSFERRING PT TO [facility], POSSIBLY TOMORROW
--- NOTE | 2016-12-07 16:00 | NUR ---
ROUNDS PT IS SLEEPING IN BED, FAMILY IS STILL AT BEDSIDE
[2016-12-07 17:05] VITALS: BP 118/75; PULSE 75; RESP 18; TEMP 96.7; O2SAT 97
--- NOTE | 2016-12-07 18:21 | NUR ---
CLOSING NOTE PT IS RESTING IN BED, FAMILY AT BEDSIDE. REASSESSED IV SITE AND WAS ABLE TO MAKE IT PATENT, AND IT IS CURRENTLY SALINE LOCKED. PATIENT'S DIARRHEA HAS SUBSIDED AND SHE STATED SHE IS COMFORTABLE AND WITHOUT PAIN.
[2016-12-07 19:54] VITALS: BP 119/72; PULSE 76; RESP 20; TEMP 97.5; O2SAT 96
--- NOTE | 2016-12-07 20:06 | NUR ---
Patient awake assist out of bed to BSC fall measures implemented , family at the bedside , also instructed to use call cook when needed , patient family return demonstration / .
--- NOTE | 2016-12-07 20:24 | NUR ---
Family here with patient and they want there Mother to wear briefs / Diapers , did explain the risk of skin problems & UTI Risks / .
[2016-12-07] MEDS: cefTRIAXone 1 GM in D5W 50 ML IV SCH (21:20)
--- NOTE | 2016-12-07 22:38 | NUR ---
Blood SUGAR BSG @ 176 mg dl 2 units of regular insulin sub q. administer as ordered .
--- NOTE | 2016-12-07 22:43 | NUR ---
Rocephin 1 GM IVPB administer as ordered no s/sx of allergic reaction , respirations regular also unlabored .
[2016-12-08] VITALS (7 sets, daily range): BP systolic 105–126; BP diastolic 58–69; PULSE 65–89; RESP 16–20; TEMP 96.6–97.7; O2SAT 97–100
--- NOTE | 2016-12-08 00:14 | NUR ---
HOURLY ROUNDING patient resting this hour bed to low position , family at the bedside assists as needed / .
[2016-12-08] MEDS: ACETYLCYSTEINE 20% 4 ML VIAL (RT) INH SCH ×4 (02:58→15:35)
[2016-12-08] MEDS: IPRATROPIUM/ALBUTEROL SULFATE 3 ML AMPUL.NEB INH SCH ×4 (02:58→15:35)
--- NOTE | 2016-12-08 05:54 | NUR ---
Patient resting this hour safety measures implemented family assist @ the bedside no complaints made call cook with patient .
[2016-12-08] MEDS: INSULIN REGULAR, HUMAN 100 UNITS/ML, 10 ML VIAL (novoLIN R) SUBCUT PRN ×3 (06:36→17:02)
[2016-12-08 07:09] LABS: BASOPHILS % (AUTO) 0.6 % (0.0-2.0); EOSINOPHILS # (AUTO) 0.1 K/uL (0.0-0.4); EOSINOPHILS % (AUTO) 1.7 % (0.0-4.0); HEMATOCRIT 34.4 % (36-48); HEMOGLOBIN 11.7 g/dL (12.0-16.0); LYMPHOCYTES # (AUTO) 1.1 K/uL (1.0-5.5); LYMPHOCYTES % (AUTO) 19.5 % (20.5-51.5); MEAN CORPUSCULAR HEMOGLOBIN 32 pg (27-31); MEAN CORPUSCULAR HGB CONC 34 % (32-36); MEAN CORPUSCULAR VOLUME 94 fL (79.0-98.0); MONOCYTES # (AUTO) 0.6 K/uL (0.0-1.0); MONOCYTES % (AUTO) 9.8 % (1.7-9.3); NEUTROPHILS # (AUTO) 3.9 K/uL (1.8-7.7); NEUTROPHILS % (AUTO) 68.4 % (40.0-70.0); PLATELET COUNT (AUTO) 170 K/uL (130-430); RED BLOOD CELL COUNT(AUTO) 3.64 MIL/uL (4.2-6.2); RED CELL DISTRIBUTION WIDTH 13.7 % (9.0-15.0); WHITE BLOOD COUNT (AUTO) 5.7 K/uL (4.8-10.8)
--- NOTE | 2016-12-08 08:00 | NUR ---
initial notes rec patient awake alert with hob elevated. daughter in the room with patient. denies pain. resp easy and unlabored. bed in low position and side rails up and locked.call light within reached. will continue to monitor patient.
--- NOTE | 2016-12-08 08:51 | NUR ---
DISCHARGE PLANNING DC Planning order for LTAC evaluation [facility]. Faxed DC Planning order to [place] [facility] office [phone]. Notified Luci Pierce Will follow up. Addendum: 12/08/16 at 0942 by Raquel SCOTT Called and spoke with patient daughter Ginger Alcantar who was agreeable with [facility] evaluation. Ginger did discuss SNF placement with family and are agreeable with SNF placement at [facility]. Ginger requested to keep her informed on [facility] evaluation and SNF bed availability. Faxed SNF referral to [facility] [phone]. Will follow up. Addendum: 12/08/16 at 1010 by Raquel Morales DP Spoke with Luci Pierce who will be here today after her meeting to evaluate patient. Addendum: 12/08/16 at 1606 by Raquel Morales DP Patient accepted at [facility] assigned to room 4B RN to report [phone] bed available anytime. ODALIS Cruz will inform patient/family. Any ambulance can be arranged. Placed transportation packet in nurses station. Addendum: 12/08/16 at 1622 by Raquel Morales DP ÁNGELA Isbell made aware. Called [facility] spoke with Jerad arranged BLS transport roller picker 6:30pm.
[2016-12-08] MEDS: PANTOPRAZOLE SODIUM 40 MG TAB PO SCH (08:55)
[2016-12-08] MEDS: OXYBUTYNIN CHLORIDE 5 MG TABLET PO SCH (08:55)
[2016-12-08] MEDS: CHOLECALCIFEROL (VITAMIN D3) 2,000 UNIT TABLET PO SCH (08:55)
[2016-12-08] MEDS: DILTIAZEM HCL 180 MG CAP.SR.24H PO SCH (08:55)
[2016-12-08] MEDS: FOLIC ACID 1 MG TABLET PO SCH ×2 (08:55→16:44)
[2016-12-08] MEDS: SPIRONOLACTONE 50 MG TABLET (ALDACTONE) PO SCH (08:56)
[2016-12-08] MEDS: METOPROLOL TARTRATE 25 MG TABLET PO SCH (08:56)
[2016-12-08] MEDS: guaiFENesin ER 600 MG TAB PO SCH (08:56)
[2016-12-08] MEDS: LISINOPRIL 5 MG TABLET PO SCH (08:57)
[2016-12-08] MEDS: FUROSEMIDE 40 MG/4 ML VIAL IVP SCH (08:58)
[2016-12-08] MEDS: TOBRAMYCIN SULFATE 0.3% EYE DROPS 5 ML OP SCH ×3 (08:58→17:00)
[2016-12-08 10:02] LABS: ANION GAP 6 (5-15); CALCIUM 8.9 mg/dL (8.4-11.0); CHLORIDE 98 mmol/L (98-107); CREATININE 1.11 mg/dL (0.55-1.30); GLUCOSE 316 mg/dL (70-99); POTASSIUM 4.5 mmol/L (3.5-5.1); SODIUM SERUM 129 mmol/L (136-145); UREA NITROGEN, BLOOD 14 mg/dL (8-21)
--- NOTE | 2016-12-08 11:15 | NUR ---
PHYSICAL THERAPY CO-SIGN The Physical Therapy Progress Notes documented by Director Of Casework Services have been reviewed. Reviewed/Co-Signed by: Ramandeep Miguel, PT Documentation Done by: Bryan Jim PTA I concur with the documentation of this DAIRY DEPARTMENT MANAGER. Plan: continue PT as per plan of care if she remains in this hospital. Addendum: 12/08/16 at 1233 by Ramandeep Miguel PT Amended: Links added.
[2016-12-08] MEDS ORDERED: VANCOMYCIN HCL 1,000 MG in NS 250 ML IV SCH (13:00)
--- NOTE | 2016-12-08 16:10 | NUR ---
DC PLANNING: Per conversation with Dr. Nash this am regarding discharging the pt. to [facility] if accepted. If not dc the pt. to [facility]. Luci Liaison has been contacted by Kelsey multiple times today, so far there is no responding of when to eval the pt. Sury, the pt's dtr made aware that the pt. will be discharged to [facility]. The pt. was accepted to room per RACHELLE Cole. and per tae Dean at [facility]. >> Dtr,Sury was informed of the above and agreed to transfer the pt. to [facility] today. >> LM of above info to dr. Nash cell phonex2 Addendum: 12/08/16 at 1642 by Nancy Bruce RN >> Returned call from dr. Nash and he acknowledged the pt discharging to [facility]. .
[2016-12-08] MEDS ORDERED: FUROSEMIDE 20 MG/2 ML VIAL IVP ONE (21:00)
== END 2016-12-08 19:15 | DRG 177 ==
LOC: SMU 18:07 → STU 12-03 21:01 → SMU 12-07 19:38
PROVIDERS: ADMIT Family Medicine; ATTEND Family Medicine
DX: J15.212 Pneumonia due to Methicillin resistant Staphylococcus aureus (principal); I50.31 Acute diastolic (congestive) heart failure; E87.1 Hypo-osmolality and hyponatremia; N39.0 Urinary tract infection, site not specified; I11.0 Hypertensive heart disease with heart failure; I27.2 Other secondary pulmonary hypertension; I48.2 Chronic atrial fibrillation; F03.90 Unspecified dementia, unspecified severity, without behavioral disturbance, psychotic disturbance, mood disturbance, and anxiety; B19.20 Unspecified viral hepatitis C without hepatic coma; E78.5 Hyperlipidemia, unspecified; I07.1 Rheumatic tricuspid insufficiency; K74.60 Unspecified cirrhosis of liver; Z96.652 Presence of left artificial knee joint; E11.9 Type 2 diabetes mellitus without complications; E87.6 Hypokalemia; R53.81 Other malaise; Z90.710 Acquired absence of both cervix and uterus; Z98.42 Cataract extraction status, left eye; Z98.41 Cataract extraction status, right eye; Z88.6 Allergy status to analgesic agent; Z79.4 Long term (current) use of insulin; Z87.442 Personal history of urinary calculi
CPT/HCPCS: 36415; 71010; 71260-TC; 80048; 80202-TC; 81000-TC; 82962; 83880; 85025; 87081; 93005; 93306; 93970; 94640; 94760; 97110-GP; 97116-GP; 97530-GP; J0456; J0696; J1815; J1940; J3370; J7040; J7050; J7060; Q9967